=== PATIENT | female | born 1940 | race Caucasian/White ===

== ENCOUNTER 2019-03-09 12:46 | Inpatient (IN) ==
[2019-03-09] MEDS ORDERED: FLU VACCINE IM ONE (13:38)
[2019-03-09 14:46] LABS: URINE SOURCE CLEAN CATCH
[2019-03-09 14:51] LABS: BILIRUBIN URINE NEGATIVE (NEGATIVE); BLOOD URINE NEGATIVE (NEGATIVE); COLOR YELLOW; GLUCOSE URINE NEGATIVE (NEGATIVE); KETONE URINE NEGATIVE (NEGATIVE); LEUKOCYTES URINE NEGATIVE (NEGATIVE); NITRITE URINE NEGATIVE (NEGATIVE); PH URINE 5.5; PROTEIN URINE NEGATIVE (NEGATIVE); SP GRAVITY URINE 1.011; TURBIDITY URINE CLEAR (CLEAR); UR EPITHELIAL CELLS <10 /HPF (<10); URINE BACTERIA NEGATIVE /HPF; URINE RBC <10 /HPF (<10); URINE WBC <10 /HPF (<10); UROBILINOGEN URINE NORMAL (NORMAL)
[2019-03-09] MEDS ORDERED: ZOFRAN IV PRN (15:55)
[2019-03-09] MEDS ORDERED: TYLENOL PO PRN (15:55)
[2019-03-09] MEDS ORDERED: RESTORIL PO PRN (16:01)
--- NOTE | 2019-03-09 16:21 | EKG Report ---
Test Performed on : 03/09/2019 4:11:08 PM Test Reason : chest pain Blood Pressure : / mmHG Vent. Rate : 078 BPM Atrial Rate : 078 BPM P-R Int : 180 ms QRS Dur : 100 ms QT Int : 346 ms P-R-T Axes : 056 -20 016 degrees QTc Int : 394 ms Normal sinus rhythm. Normal ECG No previous ECGs available Confirmed by Magdi Wilson MD ([id number]) on 03/10/2019 7:42:00 AM
[2019-03-09] MEDS: LOVENOX SUBQ SCH (16:43)
[2019-03-09 17:17] LABS: BASO# 0.02 X1000 (0.0-0.2); BASO% 0.1 % (0.0-0.8); EOS# 0.01 X1000 (0.0-0.7); HEMOGLOBIN 11.6 g/dL (12.0-16.0); IMM GRAN# 0.17 X1000 (0.0-0.04); IMM GRAN% 0.6 % (0.0-0.5); LYMPH# 1.55 X1000 (1.2-3.4); LYMPH% 5.1 % (20.5-51.1); MCH 28.4 PG (27-31); MCHC 32.2 g/dL (33-37); MONO# 3.44 X1000 (0.11-0.59); MONO% 11.4 % (1.7-9.3); NEUT% 82.8 % (42.2-75.2); PLT 279 X1000 (130-400); RBC 4.09 XMIL (4.2-5.4); RDW 12.7 % (11.5-14.5); WBC 30.19 X1000 (4.8-10.8)
--- NOTE | 2019-03-09 17:33 | Diag Imaging Result Doc PS360 ---
EXAM: CHEST-PORTABLE HISTORY: r/o pna TECHNIQUE: Chest single view COMPARISON: 10/16/2011 FINDINGS: Poor inspiratory effort. The heart is not enlarged. The vessels are not distended. There are no infiltrates. No effusion identified. IMPRESSION: No pneumonia Electronically signed by Osei Olmstead 03/09/2019 5:31 PM
[2019-03-09 17:38] LABS: ALBUMIN 3.9 g/dL (3.5-5.0); CALCIUM 12.5 mg/dL (8.8-10.2); CREATININE 1.4 mg/dL (0.5-0.9); MAGNESIUM 1.8 mg/dL (1.5-2.7); POTASSIUM 4.3 mmol/L (3.5-5.1); TOTAL BILIRUBIN 0.4 mg/dL (0.20-1.00); TOTAL PROTEIN 7.9 g/dL (6.3-8.3)
[2019-03-09 17:46] LABS: BANDS 9 % (0-1); LYMPHS 4 % (21-51); MONO 7 % (1-9); SEGS 80 % (42-75)
[2019-03-09] MEDS: NEURONTIN PO SCH (20:44)
[2019-03-09] MEDS: NORCO-7.5 PO PRN (20:45)
[2019-03-10] MEDS: LOVENOX SUBQ SCH ×2 (06:19→16:58)
[2019-03-10 07:06] LABS: BASO# 0.02 X1000 (0.0-0.2); BASO% 0.1 % (0.0-0.8); EOS# 0.16 X1000 (0.0-0.7); EOS% 0.7 % (0.0-10.0); HEMATOCRIT 35.5 % (37.0-47.0); HEMOGLOBIN 11.4 g/dL (12.0-16.0); IMM GRAN# 0.22 X1000 (0.0-0.04); LYMPH# 3.03 X1000 (1.2-3.4); LYMPH% 13.1 % (20.5-51.1); MCH 28.6 PG (27-31); MCHC 32.1 g/dL (33-37); MONO# 3.23 X1000 (0.11-0.59); MPV 12.2 FL (7.4-10.4); NEUT# 16.48 X1000 (1.4-6.5); NEUT% 71.1 % (42.2-75.2); PLT 320 X1000 (130-400); RBC 3.99 XMIL (4.2-5.4); RDW 12.8 % (11.5-14.5); WBC 23.14 X1000 (4.8-10.8)
[2019-03-10 07:07] LABS: INR 1.23; PROTIME 15.7 Seconds (11.0-16.0)
[2019-03-10 07:08] LABS: PTT 30.9 Seconds (22.3-41.8)
[2019-03-10 07:15] LABS: ALBUMIN 3.7 g/dL (3.5-5.0); CALCIUM 11.8 mg/dL (8.8-10.2); CREATININE 1.4 mg/dL (0.5-0.9); MAGNESIUM 1.6 mg/dL (1.5-2.7); POTASSIUM 4.1 mmol/L (3.5-5.1); TOTAL BILIRUBIN 0.52 mg/dL (0.20-1.00); TOTAL PROTEIN 7.3 g/dL (6.3-8.3)
--- NOTE | 2019-03-10 08:33 | EKG Report ---
Test Performed on : 03/10/2019 08:08:25 AM Test Reason : chest pain Blood Pressure : / mmHG Vent. Rate : 069 BPM Atrial Rate : 069 BPM P-R Int : 164 ms QRS Dur : 102 ms QT Int : 374 ms P-R-T Axes : 054 -03 051 degrees QTc Int : 400 ms Sinus rhythm. with occasional premature ventricular complexes. Otherwise normal ECG When compared with ECG of 09-MAR-2019 16:11, premature ventricular complexes. are now present Confirmed by Katie HE, Magdi Wild ([id number]) on 03/11/2019 7:44:30 AM
--- NOTE | 2019-03-10 09:16 | PROGRESS NOTE ---
DATE: 03/10/2019 SUBJECTIVE: Ms. Eldridge feels like her leg is softer. She did get a good night's sleep. OBJECTIVE: Vital Signs: Remains afebrile, temperature 98.4 degrees, pulse 70, respirations 12, blood pressure 139/52. HEENT: Pupils are equal and round. Lungs: Clear in all lung bro. Cardiovascular: Regular rhythm and rate without murmur or S3. Abdomen: Soft. Skin: Warm and dry. IMAGING AND LABORATORY DATA: White count has come down from 30,000 to 23,140, hematocrit 35, platelet count 320,000. Sodium 142, potassium 4.1, chloride 104, BUN 64, creatinine 1.4. Note that her chest x-ray from yesterday showed no pneumonia. ASSESSMENT AND PLAN: 1. Deep venous thrombosis, lower extremity. Plan to continue her Lovenox at 90 mg subcutaneously every 12 hours. 2. Blood pressure looks good. Continue Avapro 300 mg daily. 3. History of hypothyroidism, on levothyroxine. cc: Mark Figueredo MD
[2019-03-10] MEDS: NEURONTIN PO SCH ×2 (09:30→21:56)
[2019-03-10] MEDS: AVAPRO PO SCH (09:30)
[2019-03-10] MEDS: LASIX PO SCH (09:30)
[2019-03-10] MEDS: NORCO-7.5 PO PRN ×2 (09:31→17:01)
[2019-03-10] MEDS: SYNTHROID PO SCH (10:26)
--- NOTE | 2019-03-10 18:09 | HISTORY AND PHYSICAL ---
HISTORY OF PRESENT ILLNESS: She states that she had stepped in a hole a couple of times and hurt her left leg, and then it started swelling originally around the calf and the knee and then seems to have continued to swell and was sent here by primary care physician. Venous ultrasound was done here and showed extensive venous clot in the left leg. She has not had any surgery on that leg. PAST MEDICAL HISTORY: 1. She is on Neurontin for some neuropathic pain. 2. She takes Synthroid for hypothyroidism. 3. She is on Crestor for hypercholesterolemia. 4. Takes temazepam for sleep. PHYSICAL EXAMINATION: VITAL SIGNS: Temperature was 97.8 degrees, pulse 78, respirations 20, blood pressure 141/52. Pupils are equal and round. Weight 204 pounds. Height 5 feet. LUNGS: Clear in all lung bro. CARDIOVASCULAR: Regular rhythm and rate without murmur or S3. ABDOMEN: Soft. SKIN: Warm and dry. DIAGNOSTIC DATA: When she presented, her white count was 30,190, hematocrit 36, platelet count 279,000. Sodium 139, potassium 4.3, chloride 103, bicarb 20, BUN 76, creatinine 1.4, calcium 12.5. Troponin less than 0.01. TSH was 0.39. ProTime 15.7. PTT was 30. Urinalysis unremarkable. Chest x-ray noted with no sign of pneumonia. No infiltrate. REVIEW OF SYSTEMS: General: No weight gain or loss. No fever or chills. HEENT: Unremarkable. No change in visual or hearing acuity. Respiratory: No increased work of breathing or pleuritic pain. Cardiovascular: No chest pain or tachy palpitation GI/: Unremarkable. Musculoskeletal/Neurologic: No significant complaints. ASSESSMENT AND PLAN: 1. Large left deep venous thrombosis. She has had trauma to her knee earlier. We will put her on full anticoagulant with Lovenox. 2. History of hypothyroidism. 3. Obesity. 4. Review of orders. Continue her home medications. I do not see any other change. cc: Mark Figueredo MD
[2019-03-10] MEDS ORDERED: CRESTOR PO SCH (21:00)
[2019-03-11] MEDS: NORCO-7.5 PO PRN ×2 (00:41→17:02)
[2019-03-11] MEDS: LOVENOX SUBQ SCH ×2 (04:38→17:13)
[2019-03-11] MEDS: SYNTHROID PO SCH ×2 (04:39→07:00)
[2019-03-11 06:56] LABS: BASO# 0.04 X1000 (0.0-0.2); BASO% 0.2 % (0.0-0.8); EOS# 0.46 X1000 (0.0-0.7); EOS% 2.4 % (0.0-10.0); IMM GRAN% 1.6 % (0.0-0.5); LYMPH# 3.01 X1000 (1.2-3.4); LYMPH% 15.9 % (20.5-51.1); MCH 28.7 PG (27-31); MCHC 32.4 g/dL (33-37); MCV 88.8 FL (81-99); MONO# 3.13 X1000 (0.11-0.59); MONO% 16.5 % (1.7-9.3); MPV 11.5 FL (7.4-10.4); NEUT% 63.4 % (42.2-75.2); PLT 328 X1000 (130-400); RBC 3.83 XMIL (4.2-5.4); RDW 12.5 % (11.5-14.5); WBC 18.94 X1000 (4.8-10.8)
[2019-03-11 07:10] LABS: ALB/GLOB RATIO 0.9; CALCIUM 11.1 mg/dL (8.8-10.2); CREATININE 1.1 mg/dL (0.5-0.9); MAGNESIUM 1.5 mg/dL (1.5-2.7); TOTAL BILIRUBIN 0.6 mg/dL (0.20-1.00); TOTAL PROTEIN 6.5 g/dL (6.3-8.3)
[2019-03-11 07:17] LABS: BANDS 2 % (0-1); EOS 2 % (1-10); LYMPHS 22 % (21-51); MONO 4 % (1-9); SEGS 54 % (42-75)
[2019-03-11] MEDS: AVAPRO PO SCH (09:21)
[2019-03-11] MEDS: LASIX PO SCH (09:22)
[2019-03-11] MEDS: NEURONTIN PO SCH (09:22)
--- NOTE | 2019-03-11 10:12 | DISCHARGE SUMMARY ---
ADMISSION DATE: 03/09/2019 DISCHARGE DATE: 03/11/2019 HOSPITAL COURSE: This is a 78-year-old who states that she had tripped and sprained her knee a couple times last week, and noted swelling around the lower leg and knee, continued to swell up into the leg. Her past medical history is pretty unremarkable. She has a history of hypothyroidism, history of hypercholesterolemia. She is taking some Neurontin for some neuropathic pain and takes temazepam for sleep. Really no significant surgeries. Noninvasive study showed large clot burden in the left leg, was put on subcutaneous Lovenox and the leg did soften. She was able to ambulate, go to the bathroom. She would like to go home. She has been here 48 hours on Lovenox. Encouraged her to not do any rigorous exercise for another week and elevate that leg as much as she can. We will send her home on Xarelto 15 mg twice a day for 21 days and then start 20 mg a day. She will follow up with her primary care physician. DISCHARGE MEDICATIONS: She will be on Lasix 20 mg a day, Neurontin 200 mg b.i.d. I think she takes Metter 7.5 twice a day p.r.n. Avapro 300 mg a day, Synthroid 137 mcg daily, Crestor 5 mg at bedtime, Restoril 15 mg at bedtime, and then her Xarelto 15 mg twice a day for 21 days, then 20 mg daily from there. cc: Mark Figueredo MD
[2019-03-11 15:47] VITALS: BP 140/45
== END 2019-03-11 17:58 | disposition home or self-care (01) | DRG 301 ==
LOC: DIRADM 12:46 → 4N 12:57
PROVIDERS: ATTEND Emergency Medicine